=== PATIENT | female | born 1965 | race Caucasian/White ===

== ENCOUNTER 2017-10-27 18:36 | Emergency (ER) | payer OTHER ==
[~2017-10-27] VITALS: Ht 162.6 cm; Wt 65.6 kg
[2017-10-27 18:40] VITALS: Ht 162.6 cm; Wt 65.6 kg
[2017-10-27] MEDS: ONDANSETRON 4 MG INJ IV STA ×2 (20:07→20:59)
[2017-10-27] MEDS ORDERED: LIDOCAINE/MYLANTA 40 ML BTL PO STA (20:07)
[2017-10-27] MEDS: HYDROCODONE/APAP (5/325) TAB PO ONE ×2 (21:01→21:06)
--- NOTE | 2017-10-27 21:14 | RADRPT ---
PROCEDURE: US abdomen right upper quadrant CLINICAL INDICATION: Epigastric pain that radiates to the back. TECHNIQUE: Rausch scale and color Doppler ultrasound of the right upper quadrant of the abdomen was p erformed. COMPARISON: None available. FINDINGS: Pancreas: Visualized portions are unremarkable. Liver: Normal in size and echogenicity with no focal hepatic lesion. Hepatopedal flow in the main po rtal vein. Gallbladder: No cholelithiasis, gallbladder wall thickening, or pericholecystic fluid. Common bile duct: 3 mm in diameter. Right Kidney: 10.1 cm in length. No nephrolithiasis, hydronephrosis, or mass. Ascites: None. IMPRESSION: 1. Unremarkable examination. A source for the patient's symptoms is not identified. RPTAT: HLBP .Kevin Dhaliwal MD, Date Time Electronically viewed and signed by .Kevin Dhaliwal MD, MD on 10/27/2017 21:14 .P/
[2017-10-27 21:30] LABS: ADD UMIC YES; UR ASCORBIC ACID NEGATIVE (NEGATIVE); UR BACTERIA FEW /HPF (NONE SEEN); UR BILIRUBIN (Dip) NEGATIVE (NEGATIVE); UR BLOOD (Dip) 1+ mg/dL (NEGATIVE); UR CLARITY CLEAR (CLEAR); UR COLOR STRAW (YELLOW); UR GLUCOSE (Dip) NEGATIVE (NEGATIVE); UR KETONES (Dip) NEGATIVE (NEGATIVE); UR LEUKOCYTE ESTERASE (Dip) NEGATIVE Leu/ul (NEGATIVE); UR MUCUS FEW /HPF (NONE SEEN); UR NITRITE (Dip) NEGATIVE (NEGATIVE); UR RBC 1 /HPF (0-5); UR SQUAMOUS EPITHELIAL CELL FEW /HPF (FEW); UR TOTAL PROTEIN (Dip) NEGATIVE (NEGATIVE); UR UROBILINOGEN (Dip) NEGATIVE (NEGATIVE)
[2017-10-27 22:08] LABS: ABNORMAL IP MESSAGE 1; HEMATOCRIT 35.6 % (37.0-47.0); HEMOGLOBIN 11.3 g/dl (12.0-16.0); MEAN CORPUSCULAR HEMOGLOBIN 25.6 pg (29.0-33.0); MEAN CORPUSCULAR HGB CONC 31.7 g/dl (32.0-37.0); MEAN CORPUSCULAR VOLUME 80.5 fl (82.0-101.0); PLATELET COUNT 219 10^3/UL (140-415); RED BLOOD COUNT 4.42 10^6/ul (4.20-5.40); RED CELL DISTRIBUTION WIDTH 14.7 % (11.5-14.5); WHITE BLOOD COUNT 10.2 10^3/ul (4.8-10.8)
[2017-10-27 22:27] LABS: ALBUMIN 4.5 g/dl (3.3-4.9); ALBUMIN/GLOBULIN RATIO 1.25; BILIRUBIN,INDIRECT 0.2 mg/dl (0-1.1); BILIRUBIN,TOTAL 0.2 mg/dl (0.2-1.3); CALCIUM 9.4 mg/dl (8.4-10.2); CREATININE 0.63 mg/dl (0.44-1.00); POTASSIUM 3.7 mmol/L (3.5-5.1); TOTAL PROTEIN 8.1 g/dl (6.1-8.1)
[2017-10-27 22:39] LABS: POSITIVE DIFF @See below
--- NOTE | 2017-10-27 22:41 | ERD ---
ER Documentation Chief Complaint Chief Complaint epigastric pain x 3 days HPI This a 52-year-old female who presents the emergency department today complaining of upper abdominal pain for the past week. States that the pain is burning. States that in the past, approximately 3-1/2 years ago she has had an ulcer and H. pylori. States that she has a bad taste in her mouth and the pain goes up into her throat. States that the pain is worse when she eats food. States that her primary care doctor gave her Mylanta and omeprazole. Denies any vomiting, hematemesis, fevers or chills, diarrhea, chest pain or shortness of breath palpitations or dizziness. ROS All systems reviewed and are negative except as per history of present illness. Medications Home Meds Active Scripts Hydrocodone/Acetaminophen (Gravel Switch 5-325 Tablet) 1 Each Tablet, 1 TAB PO Q6H Y for PAIN, #12 TAB Prov:GEOVANNY MCNAMARA PA-C 10/27/17 Magaldrate/Simethicone* (Mylanta*) 355 Ml Susp, 30 ML PO QID Y for GASTROINTESTINAL UPSET, #1 BOTTLE Prov:GEOVANNY MCNAMARA PA-C 10/27/17 Acetaminophen* (Tylophen*) 500 Mg Capsule, 1 CAP PO Q6H Y for PAIN AND OR ELEVATED TEMP, #30 CAP Prov:GEOVANNY MCNAMARA PA-C 10/27/17 Omeprazole* (Omeprazole*) 20 Mg Capsule.dr, 20 MG PO BID, #20 Prov:GEOVANNY MCNAMARA PA-C 10/27/17 Allergies Allergies: Coded Allergies: Penicillins (Verified Allergy, Unknown, 10/27/17) PMhx/Soc Medical and Surgical Hx: pt denies Surgical Hx History of Surgery: No Anesthesia Reaction: No Hx Neurological Disorder: No Hx Respiratory Disorders: No Hx Cardiac Disorders: No Hx Psychiatric Problems: No Hx Miscellaneous Medical Probl: Yes (ulcer, h.pylori) Hx Alcohol Use: No Hx Substance Use: No Hx Tobacco Use: No Smoking Status: Never smoker Physical Exam Vitals Vital Signs Date Time Temp Pulse Resp B/P Pulse Ox O2 Delivery O2 Flow Rate FiO2 10/27/17 23:39 98.3 90 20 128/74 100 Room Air 10/27/17 18:40 98.3 95 20 130/77 98 Physical Exam Const: NAD Head: Atraumatic Eyes: Normal Conjunctiva ENT: Normal External Ears, Nose and Mouth. Neck: Full range of motion..~ No meningismus. Resp: Clear to auscultation bilaterally Cardio: Regular rate and rhythm, no murmurs Abd: Soft, epigastric pain and mild RUQ tenderness non distended. Normal bowel sounds. No lower abdominal pain. Skin: No petechiae or rashes Back: No midline or flank tenderness Ext: No cyanosis, or edema Neur: Awake and alert Psych: Normal Mood and Affect Result Diagram: 10/27/17212910/27/172129 Results 24 hrs Laboratory Tests Test 10/27/17 20:50 10/27/17 21:30 Urine Color STRAW Urine Clarity CLEAR Urine pH 6.0 Urine Specific [place] 1.010 Urine Ketones NEGATIVEmg/dL Urine Nitrite NEGATIVEmg/dL Urine Bilirubin NEGATIVEmg/dL Urine Urobilinogen NEGATIVEmg/dL Urine Leukocyte Esterase NEGATIVELeu/ul Urine Microscopic RBC 1/HPF Urine Microscopic WBC 3/HPF Urine Squamous Epithelial Cells FEW/HPF Urine Bacteria FEW/HPF Urine Mucus FEW/HPF Urine Hemoglobin 1+mg/dL Urine Glucose NEGATIVEmg/dL Urine Total Protein NEGATIVEmg/dl White Blood Count 10.210^3/ul Red Blood Count 4.4210^6/ul Hemoglobin 11.3g/dl Hematocrit 35.6% Mean Corpuscular Volume 80.5fl Mean Corpuscular Hemoglobin 25.6pg Mean Corpuscular Hemoglobin Concent 31.7g/dl Red Cell Distribution Width 14.7% Platelet Count 37119^3/UL Mean Platelet Volume 12.0fl Neutrophils % % Segmented Neutrophils % (Manual) 36% Lymphocytes % % Lymphocytes % (Manual) 37% Reactive Lymphocytes % (Manual) 5% Monocytes % % Monocytes % (Manual) 1% Eosinophils % % Eosinophils % (Manual) 20% Basophils % % Basophils % (Manual) 1% Nucleated Red Blood Cells % 0.0/100WBC Neutrophils # 10^3/ul Absolute Lymphocytes (Manual) 3.710^3/ul Lymphocytes # 10^3/ul Reactive Lymphocytes # 0.510^3/ul Monocytes # 10^3/ul Absolute Monocytes (Manual) 0.110^3/ul Eosinophils # 10^3/ul Basophils # 10^3/ul Basophils # (Manual) 0.110^3/ul Nucleated Red Blood Cells # 10^3/ul Platelet Estimate NORMAL Giant Platelets 4% Poikilocytosis 2+ Anisocytosis 1+ Microcytosis 1+ Sodium Level 140mmol/L Potassium Level 3.7mmol/L Chloride Level 103mmol/L Carbon Dioxide Level 24mmol/L Anion Gap 17 Blood Urea Nitrogen 6mg/dl Creatinine 0.63mg/dl Glucose Level 94mg/dl Calcium Level 9.4mg/dl Total Bilirubin 0.2mg/dl Direct Bilirubin 0.00mg/dl Indirect Bilirubin 0.2mg/dl Aspartate Amino Transf (AST/SGOT) 24IU/L Alanine Aminotransferase (ALT/SGPT) 30IU/L Alkaline Phosphatase 104IU/L Total Protein 8.1g/dl Albumin 4.5g/dl Globulin 3.60g/dl Albumin/Globulin Ratio 1.25 Lipase 159U/L Current Medications Medications (Trade) Dose Ordered Sig/Maris Route PRN Reason Start Time Stop Time Status Last Admin Dose Admin Ondansetron HCl (Zofran Inj) 4 mg ONCE STAT IV 10/27/17 20:07 10/27/17 20:09 DC Miscellaneous Medication (Gi Cocktail (2)) 40 ml ONCE STAT PO 10/27/17 20:07 10/27/17 20:09 DC 10/27/17 20:59 Acetaminophen/ Hydrocodone Bitart (Gravel Switch (5/325)) 1 tab ONCE ONCE PO 10/27/17 20:30 10/27/17 20:31 DC 10/27/17 21:06 DIAGNOSTIC IMAGING REPORT Patient: SHERMAN KIMBROUGH : 1965 Age: 52 Sex: F [id number] DOS: 10/27/172006 Ordering MD: GEOVANNY MCNAMARA PA-C Location: [facility] Room/Bed: PROCEDURE: US abdomen right upper quadrant CLINICAL INDICATION: Epigastric pain that radiates to the back. TECHNIQUE: Rausch scale and color Doppler ultrasound of the right upper quadrant of the abdomen was performed. COMPARISON: None available. FINDINGS: Pancreas: Visualized portions are unremarkable. Liver: Normal in size and echogenicity with no focal hepatic lesion. Hepatopedal flow in the main portal vein. Gallbladder: No cholelithiasis, gallbladder wall thickening, or pericholecystic fluid. Common bile duct: 3 mm in diameter. Right Kidney: 10.1 cm in length. No nephrolithiasis, hydronephrosis, or mass. Ascites: None. IMPRESSION: 1. Unremarkable examination. A source for the patient's symptoms is not identified. RPTAT: HLBP .Kevin Dhaliwal MD, MD Date Time Electronically viewed and signed by .Kevin Dhaliwal MD, MD on 10/27/2017 21:14 .P/ CC: GEOVANNY MCNAMARA PA-C Procedures/[facility] This is a 52-year-old female who presents the emergency department today complaining of some epigastric pain and burning sensation in her throat that is worse with food. Patient indicated that every time she ate this caused pain and then it resolved for a couple hours and then it would return again. Patient has epigastric pain on physical exam. She had some mild right upper quadrant tenderness therefore did obtain laboratory workup as well as imaging. laboratory workup shows no elevated white blood cell count. Her hemoglobin is very mildly decreased. Platelets are within normal limits. Electrolytes are within normal limits. Glucose is within normal limits. Liver enzymes are within normal limits. Lipase is within normal limits. test is negative UA is negative for infection RUQ US is unremarkable Patient denies any chest pain or shortness of breath. Her vital signs are stable. Patient reported that her symptoms were worse with food and she does have a history of H. pylori and an ulcer. I have low suspicion for acute coronary syndrome therefore I did not obtain an EKG.. Patient was given Gravel Switch and GI cocktail here in the emergency department she reported feeling better. Patient did indicate that she has a follow-up appointment with her primary care doctor tomorrow and appointment with a GI specialist for the end of the month. Patient symptoms at this time is consistent with epigastric pain possibly gastritis versus gastric reflux. She was given a short course of Gravel Switch and Tylenol for home. She was also given a prescription for Mylanta and omeprazole. She was instructed to keep her doctor's appointments. At this time the patient is stable for discharge and outpatient management. Patient should follow up with their PCP in the next 1-2 days. They may return to the emergency department sooner for any persistent or worsening of symptoms. Patient understood and agreed with the plan. Departure Diagnosis: Primary Impression: Epigastric pain Condition: GEOVANNY Barron PA-C Oct 27, 2017 22:41
[2017-10-27 23:09] LABS: ANISOCYTOSIS 1+ (0-0); BASOPHILS % (M) 1 % (0-2); EOSINOPHILS % (M) 20 % (0-7); GIANT THROMBO% (M) 4 % (0-0); MICROCYTOSIS 1+ (0-0); MONOCYTES % (M) 1 % (0-11); PLATELET ESTIMATE NORMAL; POIKILOCYTOSIS 2+ (0-0); REACTIVE LYMPHOCYTES% (M) 5 % (0-0)
[2017-10-27] MEDS ORDERED: OMEP20CA16 PO (23:28)
[2017-10-27] MEDS ORDERED: ACET500C5 PO (23:28)
[2017-10-27] MEDS ORDERED: HYDR-906 PO (23:29)
[2017-10-27] MEDS ORDERED: MAG-19 PO (23:29)
[2017-10-27 23:39] VITALS: BP 128/74; PULSE 90; RESP 20; TEMP 98.3
== END 2017-10-27 23:41 | disposition home or self-care (01) ==
LOC: FTE 18:36
DX: R10.13 Epigastric pain (principal)
CPT/HCPCS: 76705; 80053; 81001; 83690; 85025; J2405; Z7502; Z7610

== ENCOUNTER 2017-11-25 20:51 | Emergency (ER) | END 2017-11-26 04:30 | disposition home or self-care (01) ==